=== PATIENT | male | born 1965 | race Caucasian/White ===

== ENCOUNTER 2021-02-17 14:17 | Emergency (ER) | payer BC ==
[~2021-02-17] VITALS: Ht 190.5 cm; Wt 99.8 kg
[2021-02-17 14:17] VITALS: BP_SYST 139
[2021-02-17] MEDS ORDERED: NACL 0.9% 1,000 ML IV ONE (15:00)
[2021-02-17] MEDS ORDERED: DEXAMETHASONE SOD PHOSPHATE 4 MG/ML VIAL IVP ONE (15:00)
[2021-02-17] MEDS ORDERED: AMPICILLIN SODIUM/SULBACTAM NA 3 GM in NS 100 ML IV ONE (15:00)
[2021-02-17] MEDS ORDERED: KETOROLAC TROMETHAMINE 30 MG VIAL IVP ONE (15:00)
[2021-02-17] MEDS ORDERED: AMPICILLIN SODIUM/SULBACTAM NA 3 GM VIAL ONE (15:10)
[2021-02-17 15:19] LABS: BASOPHILS % (AUTO) 0.4 % (0.0-2.0); EOSINOPHILS # (AUTO) 0.2 K/uL (0.0-0.4); EOSINOPHILS % (AUTO) 1.6 % (0.0-4.0); HEMATOCRIT 46.2 % (36-54); HEMOGLOBIN 15.4 g/dL (14.0-18.0); LYMPHOCYTES # (AUTO) 1.3 K/uL (1.0-5.5); LYMPHOCYTES % (AUTO) 10.7 % (20.5-51.5); MEAN CORPUSCULAR HEMOGLOBIN 29 pg (27-31); MEAN CORPUSCULAR HGB CONC 33 % (32-36); MEAN CORPUSCULAR VOLUME 87 fL (79.0-98.0); MONOCYTES # (AUTO) 1.1 K/uL (0.0-1.0); MONOCYTES % (AUTO) 8.8 % (1.7-9.3); NEUTROPHILS # (AUTO) 9.8 K/uL (1.8-7.7); NEUTROPHILS % (AUTO) 78.5 % (40.0-70.0); PLATELET COUNT (AUTO) 216 K/uL (130-430); RED CELL DISTRIBUTION WIDTH 12.9 % (9.0-15.0); WHITE BLOOD COUNT (AUTO) 12.5 K/uL (4.8-10.8)
[2021-02-17 15:30] LABS: C-REACTIVE PROTEIN QUANT 4.3 mg/dL (0-0.5)
[2021-02-17 15:42] LABS: ALBUMIN 3.3 g/dL (3.4-4.8); CALCIUM 8.4 mg/dL (8.4-11.0); CREATININE 1.05 mg/dL (0.55-1.30); POTASSIUM 4.1 mmol/L (3.5-5.1); TOTAL BILIRUBIN 0.9 mg/dL (0.0-1.0)
[2021-02-17] MEDS ORDERED: IBUP800T54 PO (17:12)
[2021-02-17] MEDS ORDERED: CLIN300C12 PO (17:12)
[2021-02-17 17:20] VITALS: BP_SYST 139
== END 2021-02-17 17:20 | disposition home or self-care (01) ==
LOC: SED 14:17
DX: K04.7 Periapical abscess without sinus (principal)
CPT/HCPCS: 36415; 70487; 76376; 80053; 85025; 86140; 87040; 96365; 96375; 99285; J0295; J1100; J1885; J7030; Q9967

== ENCOUNTER 2021-05-25 14:35 | Emergency (ER) | payer BC, SELFPAY ==
[~2021-05-25] VITALS: Ht 190.5 cm; Wt 90.7 kg
[~2021-05-25 14:35] MED LIST: CLIN300C12 PO; IBUP800T54 PO
[2021-05-25 15:15] VITALS: BP_SYST 115
[2021-05-25 15:48] VITALS: BP_SYST 115
== END 2021-05-25 15:49 | disposition home or self-care (01) ==
LOC: SED 14:35
DX: Z20.822 Contact with and (suspected) exposure to COVID-19 (principal); Z79.899 Other long term (current) drug therapy
CPT/HCPCS: 36415; 99283